=== PATIENT | female | born 1995 | race Caucasian/White ===

== ENCOUNTER 2017-09-27 10:44 | Emergency (ER) | payer OTHER ==
[2017-09-27 10:50] VITALS: BP 121/62
[2017-09-27 11:25] LABS: Basophils % (Auto) 0.5 % (0.0-1.8); Eosinophils # (Auto) 0.1 K/mm3 (0.0-0.4); Eosinophils % (Auto) 1.7 % (0.0-4.3); Hematocrit 35.7 % (30.3-42.9); Hemoglobin 11.3 gm/dl (10.1-14.3); Lymphocytes # (Auto) 1.6 K/mm3 (1.2-5.4); Lymphocytes % (Auto) 21.7 % (13.4-35.0); Mean Corpuscular HGB Conc 32 % (30-34); Mean Corpuscular Volume 81 fl (79-97); Monocytes # (Auto) 0.5 K/mm3 (0.0-0.8); Monocytes % (Auto) 7.1 % (0.0-7.3); Platelet Count 275 K/mm3 (140-440); Red Blood Count 4.39 M/mm3 (3.65-5.03); Red Cell Distribution Width 15.5 % (13.2-15.2)
[2017-09-27 11:26] LABS: Mean Corpuscular Hemoglobin 26 pg (28-32)
--- NOTE | 2017-09-27 11:27 | Emergency Department Report ---
ED Female HPI - General Chief complaint: Vaginal Bleeding Stated complaint: ABD PAIN/VAG BLEEDING Time Seen by Provider: 09/27/17 11:12 Source: patient Mode of arrival: Ambulatory Limitations: No Limitations - History of Present Illness Initial comments: Michelle is a healthy 21-year-old female who presents with vaginal bleeding abdominal pelvic cramping. Pain radiates to the back. Initially on she had spotting. She has vaginal bleeding almost as heavy as her period. Estimated date of delivery 05/14/2017. Estimated gestational age 7 weeks 2 days MD Complaint: vaginal bleeding -: Gradual Severity: moderate Quality: cramping Consistency: intermittent Are you Now?: Yes Associated Symptoms: vaginal bleeding - Related Data : 1 Para: 0 Previous Rx's Medication Instructions Recorded Last Taken Type Acetaminophen/Codeine [Tylenol 1 tab PO Q6H PRN #15 tab 07/29/13 Unknown Rx /Codeine # 3 tab] Cephalexin [Keflex] 500 mg PO QID #40 capsule 07/29/13 Unknown Rx Chlorhexidine Soap 4% 5 ml TP TID #8 oz 07/29/13 Unknown Rx Naproxen Sodium (Nf) [Anaprox DS 550 mg PO BID PRN #14 tablet 07/29/13 Unknown Rx TAB] Sulfamethoxazole/Trimethoprim 1 each PO BID #20 tablet 07/29/13 Unknown Rx [Bactrim DS TAB] Allergies Allergy/AdvReac Type Severity Reaction Status Date / Time bee pollen [Bee Pollen] Allergy Hives Verified 09/27/17 10:45 ED Review of Systems ROS: Stated complaint: ABD PAIN/VAG BLEEDING Other details as noted in HPI Comment: All other systems reviewed and negative Constitutional: denies: fever, malaise Respiratory: denies: cough Cardiovascular: denies: chest pain ED Past Medical Hx - Past Medical History Previous Medical History?: No - Surgical History Past Surgical History?: No - Social History Smoking Status: Former Smoker Substance Use Type: None - Medications Home Medications: Home Medications Medication Instructions Recorded Confirmed Last Taken Type Acetaminophen/Codeine [Tylenol 1 tab PO Q6H PRN #15 tab 07/29/13 Unknown Rx /Codeine # 3 tab] Cephalexin [Keflex] 500 mg PO QID #40 capsule 07/29/13 Unknown Rx Chlorhexidine Soap 4% 5 ml TP TID #8 oz 07/29/13 Unknown Rx Naproxen Sodium (Nf) [Anaprox DS 550 mg PO BID PRN #14 tablet 07/29/13 Unknown Rx TAB] Sulfamethoxazole/Trimethoprim 1 each PO BID #20 tablet 07/29/13 Unknown Rx [Bactrim DS TAB] ED Physical Exam - General Limitations: No Limitations General appearance: alert, in no apparent distress - Head Head exam: Present: atraumatic, normocephalic - Eye Eye exam: Present: normal appearance - ENT ENT exam: Present: mucous membranes moist - Neck Neck exam: Present: normal inspection. Absent: tenderness, meningismus - Respiratory Respiratory exam: Present: normal lung sounds bilaterally. Absent: respiratory distress, wheezes, rales, rhonchi - Cardiovascular Cardiovascular Exam: Present: regular rate, normal rhythm, normal heart sounds. Absent: systolic murmur, diastolic murmur, rubs, gallop - GI/Abdominal GI/Abdominal exam: Present: soft, normal bowel sounds. Absent: distended, tenderness, guarding, rebound - Extremities Exam Extremities exam: Present: normal inspection - Back Exam Back exam: Present: normal inspection - Neurological Exam Neurological exam: Present: alert, oriented X3 - Psychiatric Psychiatric exam: Present: normal affect, normal mood - Skin Skin exam: Present: warm, dry, intact, normal color. Absent: rash ED Course Vital Signs 09/27/17 09/27/17 10:45 13:43 Temperature 97.8 F Pulse Rate 68 Respiratory 18 18 Rate Blood Pressure 121/62 O2 Sat by Pulse 98 99 Oximetry ED Medical Decision Making - Lab Data Result diagrams: 09/27/17 11:12 Laboratory Results - last 24 hr 09/27/17 09/27/17 09/27/17 11:12 11:12 11:12 WBC 7.4 RBC 4.39 Hgb 11.3 Hct 35.7 MCV 81 MCH 26 L MCHC 32 RDW 15.5 H Plt Count 275 Lymph % (Auto) 21.7 Bulloch % (Auto) 7.1 Eos % (Auto) 1.7 Baso % (Auto) 0.5 Lymph # 1.6 Bulloch # 0.5 Eos # 0.1 Baso # 0.0 Seg Neutrophils % 69.0 Seg Neutrophils # 5.1 HCG, Quant 344.3 H Blood Type B POSITIVE Antibody Screen Negative Vital Signs - 24 hr 09/27/17 09/27/17 10:45 13:43 Temperature 97.8 F Pulse Rate 68 Respiratory 18 18 Rate Blood Pressure 121/62 O2 Sat by Pulse 98 99 Oximetry - Radiology Data Radiology results: report reviewed, image reviewed No evidence of IUP - Medical Decision Making Ms. Melendez is currently 7 weeks 2 days . She presents with vaginal bleeding and abdominal cramping. Unfortunately her first has resulted in an incomplete miscarriage. She and her partner understand ectopic precautions. I strongly recommended returning to the ER in 2-3 days for repeat hCG. She will either follow up in the ER or with her user experience architect. Critical care attestation.: If time is entered above; I have spent that time in minutes in the direct care of this critically ill patient, excluding procedure time. ED Disposition Clinical Impression: Incomplete miscarriage Disposition: [id number] TO HOME OR SELFCARE Is pt being admited?: No Does the pt Need Aspirin: No Condition: Stable Instructions: Spontaneous Miscarriage (ED) Additional Instructions: Please return to the ER in 2-3 for repeat test. We need to monitor your hormone levels in order to completely exclude the possibility of a tubal . Please return immediately if you have severe pain or a large amount of bleeding Referrals: PRIMARY CAREMD [Primary Care Provider] - 3-5 Days Time of Disposition: 14:15
--- NOTE | 2017-09-27 14:05 | Ultrasound Report ---
FINAL REPORT EXAM: US OB TRANSVAGINAL HISTORY: vaginal bleeding TECHNIQUE: Transabdominal and transvaginal sonography of the pelvis. PRIORS: None. FINDINGS: The uterus measures 7.9 x 3.4 x 5.7 cm and appears grossly unremarkable. The endometrial stripe measures 3.4 mm in AP dimension. No intrauterine fluid collection or IUP identified. The right ovary measures 2.4 x 2.3 x 2.5 cm and is grossly unremarkable. The left ovary measures 3.1 x 1.5 x 2.4 cm and is grossly unremarkable. No adnexal masses, ring-like structures or significant free peritoneal fluid. IMPRESSION: 1. No IUP identified. Possibilities include early gestation, early failure, or ectopic . Correlation with serial beta-hCG levels and follow-up ultrasound may help in further evaluation.
--- NOTE | 2017-09-27 14:06 | Ultrasound Report ---
FINAL REPORT EXAM: US OB < = 14 WEEKS FETUS HISTORY: vaginal bleeding TECHNIQUE: Transabdominal and transvaginal sonography of the pelvis. PRIORS: None. FINDINGS: The uterus measures 7.9 x 3.4 x 5.7 cm and appears grossly unremarkable. The endometrial stripe measures 3.4 mm in AP dimension. No intrauterine fluid collection or IUP identified. The right ovary measures 2.4 x 2.3 x 2.5 cm and is grossly unremarkable. The left ovary measures 3.1 x 1.5 x 2.4 cm and is grossly unremarkable. No adnexal masses, ring-like structures or significant free peritoneal fluid. IMPRESSION: 1. No IUP identified. Possibilities include early gestation, early failure, or ectopic . Correlation with serial beta-hCG levels and follow-up ultrasound may help in further evaluation.
== END 2017-09-27 14:18 | disposition home or self-care (01) ==
LOC: ED 10:44
DX: O03.4 Incomplete spontaneous abortion without complication (principal); Z3A.01 Less than 8 weeks gestation of pregnancy; Z87.891 Personal history of nicotine dependence; Z91.030 Bee allergy status
CPT/HCPCS: 36415; 76801; 76817; 84702; 85025; 86850; 86900; 86901